=== PATIENT | female | born 1960 | race Caucasian/White ===

== ENCOUNTER 2016-11-23 21:46 | Inpatient (IN) | payer OTHER ==
[~2016-11-23] VITALS: Ht 157.5 cm; Wt 118.0 kg
[2016-11-23 22:40] LABS: BASOPHIL % 0.2 % (0-2); PLATELET COUNT 244 x10^3mcL (130-400)
[2016-11-23 22:44] LABS: RED CELL DISTRIBUTION WIDTH 15.8 % (11.5-14.5)
[2016-11-23 23:00] LABS: ALBUMIN 4.2 g/dL (3.4-5.0); BILIRUBIN TOTAL 0.5 mg/dL (0.20-1.00); CALCIUM 8.9 mg/dL (8.5-10.1); CARBON DIOXIDE 21.1 mmol/L (21-32)
[2016-11-23 23:02] LABS: TOTAL PROTEIN, SERUM 8.5 g/dL (6.4-8.2)
[2016-11-23 23:04] LABS: POTASSIUM SERUM 5.6 mmol/L (3.5-5.1)
[2016-11-23] MEDS ORDERED: ACT30 PO (23:40)
[2016-11-23] MEDS ORDERED: ASPIR 8181 MG PO (23:40)
[2016-11-23] MEDS ORDERED: METFORMIN HCL1000 MG PO (23:41)
[2016-11-23] MEDS ORDERED: BENAZEPRIL HYDR20 M1 PO (23:42)
[2016-11-23] MEDS ORDERED: LIPI20 PO (23:42)
[2016-11-24 00:23] LABS: UA SPECIFIC GRAVITY >=1.030 (1.005-1.035); microscopic required? YES; urine erythrocyte 1+ (NEGATIVE)
[2016-11-24 01:23] VITALS: BP 111/49
[2016-11-24 03:57] LABS: CHOLESTEROL/HDL RATIO 3.8
[2016-11-24 03:59] LABS: AMPHETAMINE QUAL UR NONE DETECTED (NEG <=1000)
[2016-11-24 04:06] LABS: T3 TOTAL 0.91 ng/mL
[2016-11-24 04:07] LABS: FREE T4 1.4 ng/dL (0.76-1.46); FREE THYROXINE INDEX 3.6 ug/dL (1.4-4.5); T4(THYROXINE) 10.2 ug/dL (4.7-13.3)
[2016-11-24 04:23] LABS: BASOPHIL % 0.5 % (0-2); PLATELET COUNT 200 x10^3mcL (130-400)
[2016-11-24 04:31] LABS: CALCIUM 8.5 mg/dL (8.5-10.1); PHOSPHOROUS 6.8 mg/dL (2.5-4.9); POTASSIUM SERUM 5.1 mmol/L (3.5-5.1)
[2016-11-24 04:34] LABS: CREATININE SERUM 4.7 mg/dL (0.6-1.0)
[2016-11-24 06:08] VITALS: BP 99/46
[2016-11-24 14:54] VITALS: BP 146/52
[2016-11-25 06:17] LABS: MAGNESIUM 1.9 mg/dL (1.8-2.4); PHOSPHOROUS 3.2 mg/dL (2.5-4.9); POTASSIUM SERUM 4.5 mmol/L (3.5-5.1)
[2016-11-25 06:35] LABS: CREATININE SERUM 1.1 mg/dL (0.6-1.0)
[2016-11-25 06:52] LABS: PLATELET COUNT 171 x10^3mcL (130-400)
[2016-11-25 06:56] LABS: RED CELL DISTRIBUTION WIDTH 15.9 % (11.5-14.5)
[2016-11-25 07:33] LABS: MONOCYTE 7 % (0-7); SEGMENTED NEUTROPHILS 55 % (37-75); rbc morphology (normal/abnorm) NORMAL (NORMAL)
[2016-11-25 13:24] VITALS: BP 119/37
[2016-11-25 17:40] VITALS: BP 130/55
[2016-11-25 22:13] VITALS: BP 127/64
[2016-11-26 06:17] VITALS: BP 122/54
[2016-11-26 06:26] LABS: PLATELET COUNT 168 x10^3mcL (130-400)
[2016-11-26 06:27] LABS: CALCIUM 8.1 mg/dL (8.5-10.1); CARBON DIOXIDE 24.7 mmol/L (21-32); CHLORIDE SERUM 109 mmol/L (98-107); CREATININE SERUM 0.6 mg/dL (0.6-1.0); GFR1 > 60 mL/min; GLUCOSE SERUM 115 mg/dL (74-106); POTASSIUM SERUM 4.6 mmol/L (3.5-5.1); SODIUM SERUM 142 mmol/L (136-145)
[2016-11-26 06:58] LABS: RED CELL DISTRIBUTION WIDTH 15.7 % (11.5-14.5)
[2016-11-26 09:33] LABS: BAND NEUTROPHIL 3 % (0-10); BASOPHIL 0 % (0-2); MONOCYTE 5 % (0-7)
[2016-11-26 09:36] LABS: SEGMENTED NEUTROPHILS 47 % (37-75)
[2016-11-26 09:37] LABS: PLATELET MORPHOLOGY PLATELETS NORMAL; rbc morphology (normal/abnorm) NORMAL (NORMAL)
[2016-11-26] MEDS ORDERED: LAC PO (09:44)
[2016-11-26] MEDS ORDERED: BACTRIM DS1 TAB PO (09:46)
[2016-11-26 12:00] VITALS: BP 122/54
== END 2016-11-26 13:20 | disposition home or self-care (01) | DRG 463 ==
LOC: ED 21:46 → DU 11-24 00:20 → MU 11-25 11:34
PROVIDERS: Emergency Medicine; ADMIT Family Medicine
DX: N39.0 Urinary tract infection, site not specified (principal); N17.0 Acute kidney failure with tubular necrosis; E87.1 Hypo-osmolality and hyponatremia; E11.65 Type 2 diabetes mellitus with hyperglycemia; E11.59 Type 2 diabetes mellitus with other circulatory complications; D68.69 Other thrombophilia; R91.1 Solitary pulmonary nodule; E87.5 Hyperkalemia; E86.0 Dehydration; D64.9 Anemia, unspecified; E66.01 Morbid (severe) obesity due to excess calories; Z68.42 Body mass index [BMI] 45.0-49.9, adult; Z78.0 Asymptomatic menopausal state; Z79.82 Long term (current) use of aspirin; Z79.84 Long term (current) use of oral hypoglycemic drugs
CPT/HCPCS: 82962; 84439; 94150; 97110-GP; 97116-GP; J0696; J1815; J1940; J2270; J2405; J3490; J7030; J7050; Q0092